=== PATIENT | male | born 1960 | race African-American/Black ===

== ENCOUNTER 2021-10-08 18:54 | Emergency (ER) | payer SELFPAY ==
[~2021-10-08] VITALS: Ht 180.3 cm; Wt 70.0 kg
[2021-10-08 18:59] VITALS: BP 158/89
== END 2021-10-08 22:48 | disposition left against medical advice (07) ==
LOC: ER 18:54
DX: R06.2 Wheezing (principal); I49.9 Cardiac arrhythmia, unspecified; Z53.21 Procedure and treatment not carried out due to patient leaving prior to being seen by health care provider
CPT/HCPCS: 93005